=== PATIENT | male | born 1970 | race African-American/Black ===

== ENCOUNTER 2017-01-09 10:45 | Emergency (ER) | payer OTHER ==
--- NOTE | ~2017-01-09 | CR230 ---
[facility] A Service of [facility] & [facility] RADIOLOGY TEXT RESULTS PATIENT: MAURY TODD LOCATION: [facility] : 72 UNIT #: [id number] AGE: [address]: Lyly Curtis SEX: M ORDER DR: [id number] [facility] [address] [place], [place] [address] [id number] E MR#: [id number] Acc #: [id number] NAME: MAURY TODD : 1970 SEX: M STUDY DATE/TIME: 01/09/2017 10:12 UNIT: [facility] ROOM: STUDY DESCRIPTION: CR Shoulder Min 2 View Rt Attending Physician: Lyly Curtis P.A.-C. Ordering Physician: Lyly Curtis P.A.-C. Primary Care Physician: No Primary Care Physician MEDICAL IMAGING REPORT This report is preliminary unless electronic signature is present EXAM Right shoulder, 01/09. INDICATION Shoulder pain in right shoulder for 1 year. No trauma. FINDINGS 3 views of the shoulder were obtained. No fractures are seen. There is no glenohumeral dislocation. There is some AC joint arthropathy. There is some mild elevation of the distal clavicle relative to the acromion which could reflect ligamentous injury. IMPRESSION Mild AC joint arthropathy with slight elevation of the distal clavicle relative to the acromion. This may reflect a ligamentous injury. The glenohumeral joint is normal. Dictated by... Junior Dennis Jr., M.D. THIS IS AN ELECTRONICALLY VERIFIED REPORT Junior Dennis Jr., M.D. at 01/09/2017 2:58 PM KIANA/ruel TD: 01/09/2017 12:31 JOB #: [id number] MEDICAL IMAGING REPORT COPY
--- NOTE | ~2017-01-09 | CT4 ---
[facility] A Service of [facility] / [facility] RADIOLOGY TEXT RESULTS PATIENT: MAURY TODD LOCATION: [facility] : 72 UNIT #: [id number] AGE: [address]: Lyly Curtis SEX: M ORDER DR: [id number] [place] [id number] [facility]. [place], [place] [address] [id number] E MR#: [id number] Acc #: [id number] NAME: MAURY TODD : 1970 SEX: M STUDY DATE/TIME: 01/09/2017 10:22 UNIT: [facility] ROOM: STUDY DESCRIPTION: CT Abd and Pelv Wo Cont Attending Physician: Lyly Curtis P.A.-C. Ordering Physician: Lyly Curtis P.A.-C. Primary Care Physician: No Primary Care Physician MEDICAL IMAGING REPORT This report is preliminary unless electronic signature is present EXAM CT abdomen and pelvis without contrast. INDICATION Right flank pain for 3 months. TECHNIQUE Axial 3 mm images were obtained through the abdomen and pelvis without IV or oral contrast. This CT exam was performed with one or more of the following radiation dose reduction techniques: automatic exposure control, adjustment of mA and/or kV according to patient size, and iterative reconstruction. FINDINGS The lung bases are clear. The liver, gallbladder, spleen, pancreas, and adrenal glands are normal. The left kidney has a nonobstructing stone in the lower pole measuring 4 mm in diameter and the right kidney has a nonobstructing stone in the upper pole measuring 2-3 mm in diameter. There is no hydronephrosis on either side. No ureteral stones are visible. The aorta is normal in size and there is no adenopathy. The bowel including the appendix appears normal. The bladder and prostate gland are normal. The bones are unremarkable. IMPRESSION There is a single small nonobstructing renal stone on each side. There is no hydronephrosis or ureteral stone. The appendix is normal. The study is otherwise normal. Dictated by... [facility] A Service [facility] RADIOLOGY TEXT RESULTS PATIENT: MAURY TODD [id number] 72 UNIT #: [id number] AGE: [address]: Lyly Curtis SEX: M ORDER DR: Joaquin Villagomez M.D. THIS IS AN ELECTRONICALLY VERIFIED REPORT Joaquin Villagomez M.D. at 01/09/2017 2:05 PM GUY/ruel TD: 01/09/2017 12:33 JOB #: [id number] MEDICAL IMAGING REPORT COPY
== END 2017-01-09 11:00 | disposition home or self-care (01) ==
LOC: CFTX 10:45
DX: M19.011 Primary osteoarthritis, right shoulder (principal); R10.9 Unspecified abdominal pain; R03.0 Elevated blood-pressure reading, without diagnosis of hypertension
CPT/HCPCS: 73030; 74176; 99284